=== PATIENT | female | born 1960 | race African-American/Black ===

== ENCOUNTER 2024-08-28 07:30 | Emergency (ER) | payer MEDICAID ==
[~2024-08-28] VITALS: Ht 167.6 cm; Wt 70.0 kg
[2024-08-28 07:32] VITALS: O2SAT 98
[2024-08-28 08:07] LABS: CHLORIDE 105 mEq/L (98-107); POTASSIUM 3.6 mEq/L (3.5-5.1); SODIUM 139 mEq/L (136-145)
[2024-08-28 08:08] LABS: CALCIUM 9.5 mg/dL (8.7-10.4); CARBON DIOXIDE 25 mEq/L (21-32)
[2024-08-28 08:13] LABS: BASOPHILS % 0.2 % (0.0-2.0); CREATININE 1.1 mg/dL (0.6-1.0); EOSINOPHILS % 0.1 % (0.0-5.0); GLUCOSE 125 mg/dL (70-105); HEMATOCRIT. 39.4 % (36.0-48.0); HEMOGLOBIN. 13.1 g/dL (12.0-16.0); LYMPHOCYTES % 10.7 % (20.0-50.0); MEAN CORPUSCULAR HEMOGLOBIN 31.7 pg (28.0-32.0); MEAN CORPUSCULAR HGB CONC 33.2 g/dL (31.0-37.0); MEAN CORPUSCULAR VOLUME 95.4 fL (81.0-99.0); MEAN PLATELET VOLUME 7.4 fl (7.4-10.4); MONOCYTES % 8.3 % (2.0-8.0); NEUTROPHILS % 80.7 % (40.0-76.0); PLATELET 282 x1000/uL (130-400); RED BLOOD CELL COUNT 4.13 mill/uL (4.2-5.4); RED CELL DISTRIBUTION WIDTH 13.8 % (11.6-14.6); UREA NITROGEN BLOOD 13 mg/dL (9-23); WHITE BLOOD COUNT 8.6 x1000/uL (4.5-11.0)
[2024-08-28] MEDS: MORPHINE SULFATE 4 MG/ML INJ (FOR IV/IM USE) IV STA (08:29)
[2024-08-28] MEDS: ONDANSETRON HCL 4MG/2ML INJ IV ONE (08:29)
[2024-08-28 08:32] LABS: CLARITY URINE TURBID (CLEAR); COLOR URINE YELLOW (YELLOW); GLUCOSE URINE NEGATIVE (NEGATIVE); KETONES URINE TRACE (NEGATIVE); LEUKOCYTE ESTERASE URINE 2+ (NEGATIVE); NITRITE URINE POSITIVE (NEGATIVE); OCCULT BLOOD URINE 2+ (NEGATIVE); PROTEIN URINE 4+ (NEGATIVE); SPECIFIC GRAVITY URINE 1.023 (1.005-1.030)
[2024-08-28 10:10] LABS: BACTERIA URINE 4+; SQUAMOUS EPITHELIAL CELL URINE NONE SEEN /lpf (RARE/1+); WBC URINE TNTC /hpf (0-2)
[2024-08-28 10:11] LABS: RBC URINE TNTC /hpf (0-2)
[2024-08-28] MEDS: CEFTRIAXONE 1GM/50ML 50 ML IV ONE (10:25)
[2024-08-28] MEDS ORDERED: IPRATROPIUM/ALBUTEROL 0.5-3(2.5)MG/3ML NEB HHN PRN (11:45)
[2024-08-28] MEDS: SODIUM CHLORIDE 0.45% 1,000 ML IV SCH (11:45)
[2024-08-28] MEDS ORDERED: HYDROCODONE/ACETAMINOPHEN 5/325MG TABLET PO PRN (11:45)
[2024-08-28] MEDS ORDERED: NALOXONE HCL 0.4MG/ML VIAL IV PRN (11:45)
[2024-08-28] MEDS: ACETAMINOPHEN 325MG TABLET PO PRN (12:31)
[2024-08-28] MEDS: ENOXAPARIN 40MG/0.4ML SYR SUBCUT SCH (13:20)
[2024-08-28 14:32] VITALS: BP 117/67; PULSE 85; RESP 29; TEMP 36.9; O2SAT 96
[2024-08-29] MEDS ORDERED: CEFTRIAXONE 1GM/50ML 50 ML IV SCH (09:00)
== END 2024-08-28 15:10 | disposition short-term general hospital (02) ==
LOC: ER 07:37 → CANBEDREQ 10:13 → EDBEDREQSVC 13:04 → ER 15:10
DX: N93.0 Postcoital and contact bleeding (principal); N13.30 Unspecified hydronephrosis; F41.9 Anxiety disorder, unspecified; J44.9 Chronic obstructive pulmonary disease, unspecified; Z79.899 Other long term (current) drug therapy
CPT/HCPCS: 99285; 74176; 96365; 96375; 96361; 80048; 81003; 85025; 87086; 87186; 87077; 36415; 96372; J0696; J2405; J2270